=== PATIENT | female | born 1980 | race Caucasian/White ===

== ENCOUNTER → 2017-05-20 | Outpatient (CLI) | payer OTHER ==
[~2017-05-20] MED LIST: Amoxicillin500 MG PO; CEPH500 PO; CRUTCH USE; CRUTCH4 USE; FORTICAL PO; HYDACE5 PO; IBUP600 PO; IBUP800 PO; LEVSOD100 PO; LEVSOD75 PO; MEDR150I; ONDA8 PO; OXYACE5T PO; OXYC10TA19 PO; OXYC5 PO; PROM25 PO; Percocet 5-3251 EACH PO; SERT100; SULTRISS; VITAMIN D PO; VITAMINS; Veetids 500500 MG PO; Verotin-Gr Cap1 EACH PO; Zithromax250 MG PO
== END | disposition home or self-care (01) ==
LOC: LAB 15:14
DX: O09.519 Supervision of elderly primigravida, unspecified trimester (principal); O99.89 Other specified diseases and conditions complicating pregnancy, childbirth and the puerperium; R21 Rash and other nonspecific skin eruption
CPT/HCPCS: 87070; 87077; 87081; 87147; 87186; 87205; 87653

== ENCOUNTER 2017-06-24 20:10 | Inpatient (IN) | payer OTHER ==
[~2017-06-24] VITALS: Ht 157.5 cm; Wt 93.2 kg
[~2017-06-24 20:10] MED LIST changes: -OXYC5 PO; -Verotin-Gr Cap1 EACH PO
[2017-06-24 21:10] LABS: BASOPHILS ABSOLUTE AUTO 0.03 K/mm3 (0.00-0.23); BASOPHILS PERCENT AUTO 0 % (0-2); EOSINOPHILS ABSOLUTE AUTO 0.17 K/mm3 (0.00-0.68); EOSINOPHILS PERCENT AUTO 2 % (0-6); Hematocrit 38.7 % (33.0-51.0); Hemoglobin 13.2 g/dL (11.5-16.0); IMMATURE GRAN ABSOLUTE AUTO 0.02 K/mm3 (0.00-0.10); IMMATURE GRAN PERCENT AUTO 0 % (0-1); LYMPHOCYTES ABSOLUTE AUTO 1.98 K/mm3 (0.84-5.20); LYMPHOCYTES PERCENT AUTO 21 % (21-46); MONOCYTES ABSOLUTE AUTO 0.52 K/mm3 (0.16-1.47); MONOCYTES PERCENT AUTO 5 % (4-13); Mean Corpuscular HGB 32.1 pg (26.0-34.0); Mean Corpuscular HGB Conc 34.1 g/dL (31.5-36.5); Mean Corpuscular Volume 94 fL (80-100); NEUTROPHILS ABSOLUTE AUTO 6.91 K/mm3 (1.96-9.15); NEUTROPHILS PERCENT AUTO 72 % (41-73); Platelet Count 276 K/mm3 (150-400); RDW Coefficient Variation 13.4 % (11.7-14.2); RDW Standard Deviation 46.5 fL (35.1-46.3); Red Blood Cell Count 4.11 M/mm3 (3.80-5.20); White Blood Cell Count 9.63 K/mm3 (4.00-11.30)
[2017-06-24] MEDS ORDERED: Verotin-Gr Cap1 EACH PO (21:38)
[2017-06-26 05:30] LABS: Hematocrit 33.8 % (33.0-51.0); Hemoglobin 11.4 g/dL (11.5-16.0)
[2017-06-26] MEDS ORDERED: OXYC5 PO (09:41)
[2017-06-26] MEDS ORDERED: IBUP800 PO (09:41)
== END 2017-06-27 15:25 | disposition home or self-care (01) | DRG 775 ==
LOC: BC 20:10
PROVIDERS: Obstetrics & Gynecology
PROC: 10E0XZZ Delivery of Products of Conception, External Approach (ICD-10-PCS; principal; 2017-06-25)
DX: O48.0 Post-term pregnancy (principal); O99.824 Streptococcus B carrier state complicating childbirth; O99.284 Endocrine, nutritional and metabolic diseases complicating childbirth; E03.9 Hypothyroidism, unspecified; Z3A.40 40 weeks gestation of pregnancy; Z37.0 Single live birth; Z79.899 Other long term (current) drug therapy
CPT/HCPCS: 36415; 51702; 85014; 85018; 85025; J0290; J1885; J2210; J2405; J2590; J3010; J7120

== ENCOUNTER → 2017-07-01 | Outpatient (CLI) | payer OTHER ==
[~2017-07-01] MED LIST changes: +OXYC5 PO; +Verotin-Gr Cap1 EACH PO
[2017-07-01 16:37] LABS: Source, Urine Clean Catch
[2017-07-01 18:05] LABS: Bilirubin, Urine Neg (Neg); Blood, Urine 5+ (Neg); Glucose Qualitative, Urine Neg (Neg); Ketones, Urine Neg (Neg); Leukocyte Esterase, Urine 3+ (Neg); Nitrite, Urine Neg (Neg); Protein, Urine Neg (Neg); Urobilinogen, Urine NORM (Normal)
[2017-07-01 18:27] LABS: Appearance, Urine Clear (Clear); Color, Urine Yellow (P-Yellow)
[2017-07-01 18:29] LABS: Bacteria Few /hpf; Squamous Epithelial Cells Mod /hpf (Few); White Blood Cells, Urine 25-50 /hpf (0-5)
== END | disposition home or self-care (01) ==
LOC: LAB 16:35 → LAB SHORT 16:35
PROVIDERS: Obstetrics & Gynecology
DX: R30.0 Dysuria (principal)
CPT/HCPCS: 81001; 87077; 87086; 87147; 87186

== ENCOUNTER 2019-12-28 19:46 | Emergency (ER) | payer OTHER ==
[~2019-12-28] VITALS: Ht 157.5 cm; Wt 81.7 kg
[2019-12-28] MEDS ORDERED: Norco 5-325 Ta1 EACH PO (21:14)
[2019-12-28] MEDS ORDERED: Cymbalta20 MG PO (21:14)
[2019-12-28] MEDS ORDERED: ADDERALL 10 MG10 MG PO (21:14)
== END 2019-12-28 22:35 | disposition home or self-care (01) ==
LOC: ER 19:46
DX: S63.501A Unspecified sprain of right wrist, initial encounter (principal); E03.9 Hypothyroidism, unspecified; Z79.899 Other long term (current) drug therapy; W19.XXXA Unspecified fall, initial encounter
CPT/HCPCS: 29125; 73110; 99283-25

== ENCOUNTER 2022-03-03 05:52 | Emergency (ER) | payer OTHER ==
[~2022-03-03] VITALS: Ht 157.5 cm; Wt 74.8 kg
[~2022-03-03 05:52] MED LIST changes: +ADDERALL 10 MG10 MG PO; +Cymbalta20 MG PO; +Norco 5-325 Ta1 EACH PO
[2022-03-03] MEDS ORDERED: CORTIZONE-10 PL28 GM TOP (08:22)
[2022-03-03] MEDS ORDERED: MUPIROCIN1 G1 TOP (08:22)
== END 2022-03-03 08:33 | disposition home or self-care (01) ==
LOC: ER 05:52
DX: L01.00 Impetigo, unspecified (principal); L30.9 Dermatitis, unspecified; L03.115 Cellulitis of right lower limb; S70.311A Abrasion, right thigh, initial encounter; S60.410A Abrasion of right index finger, initial encounter; R44.2 Other hallucinations; E03.9 Hypothyroidism, unspecified; X58.XXXA Exposure to other specified factors, initial encounter; Z79.890 Hormone replacement therapy; Z79.899 Other long term (current) drug therapy
CPT/HCPCS: A9270

== ENCOUNTER → 2024-05-22 | Outpatient (CLI) | payer OTHER ==
[~2024-05-22] MED LIST changes: +CORTIZONE-10 PL28 GM TOP; +MUPIROCIN1 G1 TOP
[2024-06-01 20:29] LABS: OVA AND PARASITE,FECAL INTERP Negative (Negative)
== END | disposition home or self-care (01) ==
LOC: LAB 09:57 → LAB SHORT 09:57
PROVIDERS: Family Medicine
DX: A04.8 Other specified bacterial intestinal infections (principal)
CPT/HCPCS: 87177; 87209

== ENCOUNTER 2024-10-14 19:33 | Emergency (ER) | payer OTHER ==
[~2024-10-14] VITALS: Ht 157.5 cm; Wt 77.1 kg
[2024-10-14 19:49] VITALS: BP 133/101
[2024-10-14] MEDS ORDERED: Ketorolac Tromethamine 15mg Vial IV ONE (19:55)
[2024-10-15] MEDS ORDERED: AMOCLA875 PO (00:04)
== END 2024-10-15 00:27 | disposition home or self-care (01) ==
LOC: ER 19:33
DX: S62.603B Fracture of unspecified phalanx of left middle finger, initial encounter for open fracture (principal); S51.032A Puncture wound without foreign body of left elbow, initial encounter; S81.831A Puncture wound without foreign body, right lower leg, initial encounter; W54.0XXA Bitten by dog, initial encounter
CPT/HCPCS: 73030; 73090; 73130; 90471; 90715; 96374; 99284-25; A4648; A9270; J1885